=== PATIENT | male | born 1945 | race American Indian/Alaskan Native ===

== ENCOUNTER 2016-12-29 18:46 | Emergency (ER) | payer MEDICARE, OTHER ==
[2016-12-29 19:11] VITALS: BP 135/60
--- NOTE | 2016-12-29 19:18 | EDM.PDOC ---
ED HPI GENERAL MEDICAL PROBLEM - General Chief Complaint: Syncope Stated Complaint: WEAK,PASSED OUT EARLIER TODAY, [id number] Time Seen by Provider: 12/29/16 19:12 Source of Information: Reports: Patient History Limitations: Reports: No Limitations - History of Present Illness INITIAL COMMENTS - FREE TEXT/NARRATIVE: c/o dizziness weakness all day, no CP/SOB. denies prior h/o heart problems takes no rx. Dr Pennington @ cardiology consulted who states since VS are stable Pt in no acute distress then may wait and have Pt transf to @ [facility]. have pacer pads on and ready just in case. 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: Reports: EKG, IV/IO - Related Data Allergies Allergy/AdvReac Type Severity Reaction Status Date / Time metformin Allergy Anxiety Verified 01/03/16 06:30 Home Meds: Home Meds Aspirin [Children's Aspirin] 81 mg PO DAILY 09/12/14 [History] Cod Liver Oil 1 cap PO DAILY 01/03/16 [History] Past Medical History HEENT History: Reports: Hard of Hearing Cardiovascular History: Reports: [place] Respiratory History: Reports: None Gastrointestinal History: Reports: None Genitourinary History: Reports: None Other Genitourinary History: kidney infection Musculoskeletal History: Reports: None Other Musculoskeletal History: shoulder pain Neurological History: Reports: None Psychiatric History: Reports: None Endocrine/Metabolic History: Reports: Diabetes, Type II Hematologic History: Reports: Anemia, Blood Transfusion(s) Immunologic History: Reports: None Oncologic (Cancer) History: Reports: None Dermatologic History: Reports: None - Infectious Disease History Infectious Disease History: Reports: None - Past Surgical History Head Surgeries/Procedures: Reports: None Social & Family History - Family History Family Medical History: Noncontributory - Tobacco Use Smoking Status *Q: Never Smoker Second Hand Smoke Exposure: No - Caffeine Use Caffeine Use: Reports: Coffee - Alcohol Use Days Per Week of Alcohol Use: 0 - Recreational Drug Use Recreational Drug Use: No - Living Situation & Occupation Living situation: Reports: Occupation: Retired ED ROS GENERAL - Review of Systems Review Of Systems: ROS reveals no pertinent complaints other than HPI. ED EXAM, DIZZINESS - Physical Exam Exam: See Below Exam Limited By: No Limitations General Appearance: Alert, WD/WN, No Apparent Distress Eye Exam: Bilateral Eye: PERRL (pupils ess ER @ 4mm) Ears: Hearing Grossly Normal Throat/Mouth: Normal Voice, No Airway Compromise Head Exam: Atraumatic Neck: Non-Tender, Full Range of Motion Respiratory/Chest: No Respiratory Distress Cardiovascular: Bradycardia GI/Abdominal: Soft, Non-Tender Neurological: Alert, No Motor/Sensory Deficits, Oriented x 3, Other ([place]anf to [place] by self.) Psychiatric: Flat Affect Skin Exam: Warm, Dry Course - Vital Signs Last Recorded V/S: Last Vital Signs Temp 36.5 C 12/29/16 19:11 Pulse 35 L 12/29/16 19:11 Resp 8 L 12/29/16 19:11 BP 135/60 12/29/16 19:11 Pulse Ox 98 12/29/16 19:11 - Orders/Labs/Meds Orders: Active Orders 24 hr Category Date Time Status EKG 12 Lead [EKG Documentation Completion] [RC] STAT Care 12/29/16 19:06 Active Labs: Laboratory Tests 12/29/16 12/29/16 12/29/16 Range/Units 18:56 18:56 18:56 WBC 7.3 (5.0-10.0) 10^3/uL RBC 4.80 (4.6-6.2) 10^6/uL Hgb 13.9 L (14.0-18.0) g/dL Hct 43.1 (40.0-54.0) % MCV 89.8 (80-100) fL MCH 29.0 (27.0-34.0) pg MCHC 32.3 L (33.0-35.0) g/dL Plt Count 179 (150-450) 10^3/uL Neut % (Auto) 65.5 (42.2-75.2) % Lymph % (Auto) 23.8 (20.5-50.1) % [place] % (Auto) 9.3 H (2-8) % Eos % (Auto) 1.1 (1.0-3.0) % Baso % (Auto) 0.3 (0.0-1.0) % D-Dimer, Quantitative < 100 (0-400) ng/mL Sodium 140 (135-145) mmol/L Potassium 4.1 (3.6-5.0) mmol/L Chloride 107 (101-111) mmol/L Carbon Dioxide 22.0 (21.0-31.0) mmol/L Anion Gap 15.1 BUN 12 (7-18) mg/dL Creatinine 1.2 (0.6-1.3) mg/dL Est Cr Clr Drug Dosing TNP Estimated GFR (MDRD) > 60 BUN/Creatinine Ratio 10.00 Glucose 120 H (74-105) mg/dL Calcium 9.4 (8.4-10.2) mg/dl Total Bilirubin 0.5 (0.2-1.0) mg/dL AST 27 (10-42) IU/L ALT 27 (10-60) IU/L Alkaline Phosphatase 58 (42-121) IU/L Troponin I 0.07 H* (0.00-0.02) ng/ml B-Natriuretic Peptide 198 H (0-100) pg/ml Total Protein 7.4 (6.7-8.2) g/dl Albumin 4.0 (3.2-5.5) g/dl Globulin 3.4 Albumin/Globulin Ratio 1.18 - Re-Assessments/Exams Free Text/Narrative Re-Assessment/Exam: 12/29/16 19:[address] Kerr @ who kindly accepted pt. Departure - Departure Time of Disposition: 19:41 Disposition: DC/Tfer to Acute Hospital 02 Condition: Good Clinical Impression: Second degree heart block by electrocardiogram (ECG) - Discharge Information Forms: Interfacility Transfer EMTALA - My Orders Last 24 Hours: My Active Orders 12/29/16 19:06 EKG 12 Lead [EKG Documentation Completion] [RC] STAT - Assessment/Plan Last 24 Hours: My Active Orders 12/29/16 19:06 EKG 12 Lead [EKG Documentation Completion] [RC] STAT
[2016-12-29 19:28] LABS: CHLORIDE,CL 107 mmol/L (101-111); SODIUM,NA 140 mmol/L (135-145)
--- NOTE | 2017-01-02 11:09 | EKG ---
12/29/2016 - MIGUEL DYKES - TIME: 1856 hours. EKG shows Mobitz type 2 AV block. There is abnormal R-wave progression. [facility] /[id number]
== END 2016-12-29 19:43 ==
LOC: DL.ED 18:46
DX: I44.1 Atrioventricular block, second degree (principal); I25.2 Old myocardial infarction; E11.9 Type 2 diabetes mellitus without complications; Z86.2 Personal history of diseases of the blood and blood-forming organs and certain disorders involving the immune mechanism; Z88.8 Allergy status to other drugs, medicaments and biological substances; Z79.82 Long term (current) use of aspirin; Z79.899 Other long term (current) drug therapy
CPT/HCPCS: 36415; 80053; 83880; 84484; 85025; 85379; 93005; 93010; 99285

== ENCOUNTER 2018-01-20 15:15 | Emergency (ER) | payer MEDICARE, OTHER ==
[2018-01-20] MEDS ORDERED: Sodium Chloride 0.9% 10 ML Syringe FLUSH PRN (15:29)
[2018-01-20] MEDS ORDERED: Nitroglycerin 0.4 MG Tab.SL SL ONE (16:02)
[2018-01-20] MEDS ORDERED: Morphine 10 MG/ML Syringe IVPUSH ONE (16:07)
[2018-01-20] MEDS ORDERED: Ondansetron 4 MG/2 ML SDV IV ONE (16:07)
[2018-01-20 16:09] LABS: ANION GAP 11.2; CHLORIDE,CL 107 mmol/L (101-111); SODIUM,NA 141 mmol/L (135-145)
[2018-01-20 16:20] VITALS: BP 139/70
--- NOTE | 2018-01-20 18:05 | EDM.PDOC ---
Scribed by Delia Robles 01/20/18 [id number] for Guido Rojo MD ED HPI GENERAL MEDICAL PROBLEM - General Chief Complaint: Chest Pain Stated Complaint: CHEST PAIN [id number] Time Seen by Provider: 01/20/18 15:28 Source of Information: Reports: Patient, RN, RN Notes Reviewed History Limitations: Reports: No Limitations - History of Present Illness INITIAL COMMENTS - FREE TEXT/NARRATIVE: Patient reports to ER with complaint of onset of chest pain at about 8:30 this morning as he was leaving worship. Patient states that he has had a generalized headache and generalized weakness. Symptoms have been persistent throughout the entire day. Patient states that he began to feel that it could be related to his heart. He then thought that his left arm could be weaker than the right so he decided to come to the ER. He denies any visual change, slurred speech or difficulty swallowing. Denies any difficulty walking, numbness or tingling. Onset: Today Duration: Getting Worse Location: Reports: Chest Quality: Reports: Ache Severity: Moderate Improves with: Reports: None Worsens with: Reports: None Associated Symptoms: Reports: No Other Symptoms Mid-Sternal Pain Score (Numeric/FACES): 9 - Related Data Allergies Allergy/AdvReac Type Severity Reaction Status Date / Time metformin Allergy Anxiety Verified 01/20/18 15:33 Home Meds: Home Meds Aspirin [Children's Aspirin] 81 mg PO DAILY 09/12/14 [History] Cod Liver Oil 1 cap PO DAILY 01/03/16 [History] Past Medical History HEENT History: Reports: Hard of Hearing Cardiovascular History: Reports: [place] Respiratory History: Reports: None Gastrointestinal History: Reports: None Genitourinary History: Reports: None Other Genitourinary History: kidney infection Musculoskeletal History: Reports: None Other Musculoskeletal History: shoulder pain Neurological History: Reports: None Psychiatric History: Reports: None Endocrine/Metabolic History: Reports: Diabetes, Type II Hematologic History: Reports: Anemia, Blood Transfusion(s) Immunologic History: Reports: None Oncologic (Cancer) History: Reports: None Dermatologic History: Reports: None - Infectious Disease History Infectious Disease History: Reports: None - Past Surgical History Head Surgeries/Procedures: Reports: None Social & Family History - Family History Family Medical History: Noncontributory - Caffeine Use Caffeine Use: Reports: Coffee - Living Situation & Occupation Living situation: Reports: Occupation: Retired ED ROS GENERAL - Review of Systems Review Of Systems: ROS reveals no pertinent complaints other than HPI. ED EXAM, GENERAL - Physical Exam Exam: See Below Exam Limited By: No Limitations General Appearance: Alert, WD/WN, No Apparent Distress, Anxious Eye Exam: Bilateral Eye: EOMI, Normal Inspection, PERRL Ears: Normal External Exam, Hearing Grossly Normal Nose: Normal Inspection Throat/Mouth: Normal Inspection, Normal Lips, Normal Teeth, Normal Gums, Normal Oropharynx, Normal Voice, No Airway Compromise Head: Atraumatic, Normocephalic Neck: Normal Inspection, Supple, Non-Tender, Full Range of Motion. No: Carotid Bruit Respiratory/Chest: No Respiratory Distress, Lungs Clear, Normal Breath Sounds, No Accessory Muscle Use, Chest Non-Tender Cardiovascular: Normal Peripheral Pulses, Regular Rate, Rhythm, No Edema, No Gallop, No JVD, No Murmur, No Rub GI/Abdominal: Normal Bowel Sounds, Soft, Non-Tender, No Distention (Male) Exam: Deferred Rectal (Males) Exam: Deferred Back Exam: Normal Inspection Extremities: Normal Inspection, Normal Range of Motion, Non-Tender, Normal Capillary Refill, No Pedal Edema Neurological: Alert, Oriented, CN II-XII Intact, Normal Cognition, Normal Gait, No Motor/Sensory Deficits, Other (at the time of my exam has normal bilateral manager hospitality strength to the upper extremities. ) Psychiatric: Anxious Skin Exam: Warm, Dry, Intact, Normal Color, No Rash EKG INTERPRETATION EKG Date: 01/20/18 Time: 15:23 Rhythm: Other (atrial paced complexes) Rate (Beats/Min): 60 [place]ava[place]: Normal P-Wave: Present QRS: Other (RBBB, probable left atrial abnormality and probable lateral infarct. ) ST-T: Normal QT: Normal Course - Vital Signs Last Recorded V/S: Last Vital Signs Temp 37.1 C 01/20/18 15:27 Pulse 60 01/20/18 15:27 Resp 14 01/20/18 15:27 BP 139/70 01/20/18 16:11 Pulse Ox 98 01/20/18 15:27 - Orders/Labs/Meds Orders: Active Orders 24 hr Category Date Time Status EKG 12 Lead [EKG Documentation Completion] [RC] STAT Care 01/20/18 15:30 Active NIH Stroke Scale [RC] ASDIRECTED Care 01/20/18 15:42 Active Peripheral IV Care [RC] . DIRECTED Care 01/20/18 15:30 Active Sodium Chloride 0.9% [Saline Flush] Med 01/20/18 15:29 Active 10 ml FLUSH ASDIRECTED PRN Peripheral IV Insertion Adult [OM.PC] Stat Oth 01/20/18 15:30 Ordered Medication Orders Sodium Chloride (Saline Flush) 10 ml FLUSH ASDIRECTED PRN PRN Reason: Keep Vein Open Last Admin: 01/20/18 15:29 Dose: 10 ml Labs: Laboratory Tests 01/20/18 01/20/18 01/20/18 Range/Units 15:30 15:30 15:30 WBC 5.6 (5.0-10.0) 10^3/uL RBC 4.81 (4.6-6.2) 10^6/uL Hgb 13.9 L (14.0-18.0) g/dL Hct 43.3 (40.0-54.0) % MCV 90.0 (80-100) fL MCH 28.9 (27.0-34.0) pg MCHC 32.1 L (33.0-35.0) g/dL Plt Count 168 (150-450) 10^3/uL Neut % (Auto) 54.8 (42.2-75.2) % Lymph % (Auto) 32.3 (20.5-50.1) % [place] % (Auto) 10.9 H (2-8) % Eos % (Auto) 1.6 (1.0-3.0) % Baso % (Auto) 0.4 (0.0-1.0) % PT 10.0 (9.0-12.0) SEC INR 1.0 (0.9-1.2) APTT 27.6 (22.0-34.0) SEC Sodium 141 (135-145) mmol/L Potassium 4.2 (3.6-5.0) mmol/L Chloride 107 (101-111) mmol/L Carbon Dioxide 27.0 (21.0-31.0) mmol/L Anion Gap 11.2 BUN 6 L (7-18) mg/dL Creatinine 0.9 (0.6-1.3) mg/dL Est Cr Clr Drug Dosing 81.34 mL/min Estimated GFR (MDRD) > 60 BUN/Creatinine Ratio 6.66 Glucose 104 (74-105) mg/dL Calcium 9.1 (8.4-10.2) mg/dl Total Bilirubin 1.0 (0.2-1.0) mg/dL AST 18 (10-42) IU/L ALT 16 (10-60) IU/L Alkaline Phosphatase 73 (42-121) IU/L Troponin I 0.02 (0.00-0.02) ng/ml Total Protein 7.6 (6.7-8.2) g/dl Albumin 4.1 (3.2-5.5) g/dl Globulin 3.5 Albumin/Globulin Ratio 1.17 Lipase 24 (22-51) U/L Meds: Medications Generic Name Dose Route Start Last Admin Trade Name Freq PRN Reason Stop Dose Admin Sodium Chloride 10 ml 01/20/18 15:29 01/20/18 15:29 Saline Flush FLUSH 10 ml ASDIRECTED PRN Administration Keep Vein Open Discontinued Medications Generic Name Dose Route Start Last Admin Trade Name Freq PRN Reason Stop Dose Admin Morphine Sulfate 5 mg 01/20/18 16:07 01/20/18 16:18 Morphine IVPUSH 01/20/18 16:08 5 mg ONETIME ONE Administration Nitroglycerin 0.4 mg 01/20/18 16:02 01/20/18 16:11 Nitrostat SL 01/20/18 16:03 0.4 mg ONETIME ONE Administration Ondansetron HCl 4 mg 01/20/18 16:07 01/20/18 16:18 Zofran IV 01/20/18 16:08 4 mg ONETIME ONE Administration - Radiology Interpretation Free Text/Narrative:: Head CT: No acute intracranial abnormality. Luz Stroke Program Early CT Score (ASPECTS)=10. See rad report. Chest x-ray: No acute findings. See rad report. - Re-Assessments/Exams Free Text/Narrative Re-Assessment/Exam: 01/20/18 18:05 See RN entry for NIH stroke scale. Departure - Departure Time of Disposition: 18:00 Disposition: Home, Self-Care 01 Condition: Good Clinical Impression: Atypical chest pain Head ache Qualifiers: Headache type: unspecified Headache chronicity pattern: acute headache Intractability: not intractable Qualified Code(s): R51 - Headache Instructions: Nonspecific Chest Pain, [id number] Forms: ED Department Discharge Additional Instructions: Rest. Drink plenty of water Following in clinic if not completely improved in the next 1 to 2 days. Return to ER if worse at any time. - My Orders Last 24 Hours: My Active Orders 01/20/18 15:29 Sodium Chloride 0.9% [Saline Flush] 10 ml FLUSH ASDIRECTED PRN 01/20/18 15:30 EKG 12 Lead [EKG Documentation Completion] [RC] STAT Peripheral IV Care [RC] . DIRECTED Peripheral IV Insertion Adult [OM.PC] Stat 01/20/18 15:42 NIH Stroke Scale [RC] ASDIRECTED - Assessment/Plan Last 24 Hours: My Active Orders 01/20/18 15:29 Sodium Chloride 0.9% [Saline Flush] 10 ml FLUSH ASDIRECTED PRN 01/20/18 15:30 EKG 12 Lead [EKG Documentation Completion] [RC] STAT Peripheral IV Care [RC] . DIRECTED Peripheral IV Insertion Adult [OM.PC] Stat 01/20/18 15:42 NIH Stroke Scale [RC] ASDIRECTED I have read and agree with the documentation that has been completed regarding this visit. By signing this record, I attest that the documentation was completed in my physical presence and is an accurate record of the encounter.
--- NOTE | 2018-01-23 09:26 | EKG ---
01/20/2018- MIGUEL DYKES - FINDINGS: A 12-lead EKG shows atrial-paced complexes. No significant ST elevation or ST depression noted on this 12-lead EKG. [facility] /[id number]
== END 2018-01-20 18:16 | disposition home or self-care (01) ==
LOC: DL.ED 15:15
DX: R07.2 Precordial pain (principal); R51 Headache; I25.2 Old myocardial infarction; E11.9 Type 2 diabetes mellitus without complications; Z79.84 Long term (current) use of oral hypoglycemic drugs; Z79.82 Long term (current) use of aspirin
CPT/HCPCS: 36415; 70450; 71045; 80053; 83690; 84484; 85025; 85610; 85730; 93005; 93010; 96374; 96375; 99284; 99285; A9270; J2270; J2405; J7050

== ENCOUNTER 2018-07-06 13:41 | Emergency (ER) | payer MEDICAID, MEDICARE ==
[2018-07-06 13:48] VITALS: BP 140/78
[2018-07-06] MEDS ORDERED: cefTRIAXone 1 GM, Lidocaine 1% 2.1 ML IM ONE ×2 (14:07)
--- NOTE | 2018-07-06 14:11 | EDM.PDOC ---
ED HPI GENERAL MEDICAL PROBLEM - General Chief Complaint: Respiratory Problem Stated Complaint: BREATHING PROBLEMS Time Seen by Provider: 07/06/18 13:56 Source of Information: Reports: Patient, RN, RN Notes Reviewed History Limitations: Reports: No Limitations - History of Present Illness INITIAL COMMENTS - FREE TEXT/NARRATIVE: Patient presents to ER with complaint of cough, runny nose, congestion, headache , fever, chills, sore throat, diarrhea and nausea. He was seen at [facility] 3 weeks ago and antibiotics were given. He settled down for a while then got worse. Onset: Gradual Duration: Getting Worse Location: Reports: Chest Quality: Reports: Ache Severity: Moderate Improves with: Reports: None Worsens with: Reports: None Associated Symptoms: Reports: No Other Symptoms Chest Pain Score (Numeric/FACES): 10 - Related Data Allergies Allergy/AdvReac Type Severity Reaction Status Date / Time metformin Allergy Anxiety Verified 07/06/18 13:51 Home Meds: Home Meds Aspirin [Children's Aspirin] 81 mg PO DAILY 09/12/14 [History] Cod Liver Oil 1 cap PO DAILY 01/03/16 [History] Past Medical History HEENT History: Reports: Hard of Hearing, Impaired Vision Cardiovascular History: Reports: [place], [place], Pacemaker Other Cardiovascular History: Bypass 2017 Respiratory History: Reports: None Gastrointestinal History: Reports: None Genitourinary History: Reports: None Other Genitourinary History: kidney infection Musculoskeletal History: Reports: None Other Musculoskeletal History: shoulder pain Neurological History: Reports: None Psychiatric History: Reports: None Endocrine/Metabolic History: Reports: Diabetes, Type II Hematologic History: Reports: Anemia, Blood Transfusion(s) Immunologic History: Reports: None Oncologic (Cancer) History: Reports: None Dermatologic History: Reports: None - Infectious Disease History Infectious Disease History: Reports: None - Past Surgical History Head Surgeries/Procedures: Reports: None GI Surgical History: Reports: Appendectomy Social & Family History - Family History Family Medical History: Noncontributory - Tobacco Use Smoking Status *Q: Never Smoker - Caffeine Use Caffeine Use: Reports: Coffee - Recreational Drug Use Recreational Drug Use: No - Living Situation & Occupation Living situation: Reports: Occupation: Retired ED ROS GENERAL - Review of Systems Review Of Systems: ROS reveals no pertinent complaints other than HPI. ED EXAM, GENERAL - Physical Exam Exam: See Below Exam Limited By: No Limitations General Appearance: Alert, WD/WN, No Apparent Distress Eye Exam: Bilateral Eye: EOMI, Normal Inspection, PERRL Ears: Normal External Exam, Normal Canal, Hearing Grossly Normal, Normal TMs Ear Exam: Bilateral Ear: Auricle Normal, Canal Normal, TM normal Nose: Normal Inspection, Normal Mucosa, No Blood Throat/Mouth: Other (Pharynx erythematous) Head: Atraumatic, Normocephalic Neck: Normal Inspection, Supple, Non-Tender, Full Range of Motion Respiratory/Chest: Crackles (bases bilaterally) Cardiovascular: Normal Peripheral Pulses, Regular Rate, Rhythm, No Edema, No Gallop, No JVD, No Murmur, No Rub GI/Abdominal: Normal Bowel Sounds, Soft, Non-Tender, No Organomegaly, No Distention, No Abnormal Bruit, No Mass (Male) Exam: Deferred Rectal (Males) Exam: Deferred Back Exam: Normal Inspection, Full Range of Motion, NT Extremities: Normal Inspection, Normal Range of Motion, Non-Tender, Normal Capillary Refill, No Pedal Edema Neurological: Alert, Oriented, CN II-XII Intact, Normal Cognition, Normal Gait, Normal Reflexes, No Motor/Sensory Deficits Psychiatric: Normal Affect, Normal Mood Skin Exam: Warm, Dry, Intact, Normal Color, No Rash Lymphatic: Other (submental right +2.) Course - Vital Signs Last Recorded V/S: Last Vital Signs Temp 97.5 F 07/06/18 13:45 Pulse 66 07/06/18 13:45 Resp 16 07/06/18 13:45 BP 140/78 07/06/18 13:45 Pulse Ox 95 07/06/18 13:45 - Orders/Labs/Meds Meds: Medications Discontinued Medications Generic Name Dose Route Start Last Admin Trade Name Freq PRN Reason Stop Dose Admin Ceftriaxone Sodium 1 gm/ 0 gm 07/06/18 14:07 Lidocaine HCl 2.1 ml IM 07/06/18 14:08 ONETIME ONE Departure - Departure Time of Disposition: 14:09 Disposition: Home, Self-Care 01 Condition: Fair Clinical Impression: Bronchitis Sinusitis Qualifiers: Sinusitis location: unspecified location Chronicity: acute Recurrence: recurrent Qualified Code(s): J01.91 - Acute recurrent sinusitis, unspecified - Discharge Information *PRESCRIPTION DRUG MONITORING PROGRAM REVIEWED*: No *COPY OF PRESCRIPTION DRUG MONITORING REPORT IN PATIENT KAMALA: No Instructions: Sinusitis, Adult, [id number], Acute Bronchitis, Adult, Easy-to- Read, Upper Respiratory Infection, Adult, [id number] Forms: ED Department Discharge Additional Instructions: RX: Augmentin Drink plenty of water May use an over the counter decongestant, Coricidan HBP for high blood pressure Follow up with your primary care facility
== END 2018-07-06 14:38 | disposition home or self-care (01) ==
LOC: DL.ED 13:41
DX: J40 Bronchitis, not specified as acute or chronic (principal); J01.91 Acute recurrent sinusitis, unspecified; E11.9 Type 2 diabetes mellitus without complications; Z88.8 Allergy status to other drugs, medicaments and biological substances; Z79.82 Long term (current) use of aspirin; Z95.1 Presence of aortocoronary bypass graft
CPT/HCPCS: 99283; J0696

== ENCOUNTER → 2018-07-31 | Day surgery (SDC) | payer MEDICARE, OTHER ==
[~2018-07-31] MED LIST: Acetaminophen 325 MG Tab PO PRN; Dexamethasone 4 MG/ML SDV IV ONE; Midazolam 1 MG/ML 2 ML SDV IV ONE; Ondansetron 4 MG/2 ML SDV IVPUSH PRN; Phenylephrine 10% Ophth Soln 5 ML Bot EYELF PRN; Sodium Chloride 0.9% 10 ML Syringe IV ONE
[2018-07-31] MEDS: Sodium Chloride 0.9% 10 ML Syringe FLUSH PRN (08:40)
[2018-07-31] MEDS: Proparacaine 0.5% Ophth Soln 15 ML Bottle EYELF ONE (08:43)
[2018-07-31] MEDS: Povidone-Iodine 5% Sterile Ophth Soln 30 ML Bottle EYELF ONE ×2 (08:43→09:32)
[2018-07-31] MEDS: Moxifloxacin 0.5% Ophth Soln 3 ML Bottle EYELF ONE (08:44)
[2018-07-31] MEDS: Phenylephrine 10% Ophth Soln 5 ML Bot EYELF ONE (08:45)
[2018-07-31] MEDS: Timolol Maleate 0.5% Ophth Soln 5 ML Bottle EYELF ONE (08:46)
[2018-07-31] MEDS: Cataract Ophth Solution EYELF ONE (08:48)
[2018-07-31] MEDS: Lidocaine 1% 30 ML SDV ONE (09:31)
[2018-07-31] MEDS: Tetracaine HCl/PF 0.5% 4 ML Bottle EYELF ONE (09:31)
[2018-07-31] MEDS: Diclofenac Sodium 0.1% Ophth Soln 5 ML Bottle EYELF ONE (09:32)
[2018-07-31] MEDS: Dexamethasone/Neomycin/Polymyxin B Ophth Oint 3.5 GM Tube EYELF ONE (09:32)
[2018-07-31] MEDS: Apraclonidine 0.5% Ophth Soln 5 ML Bot EYELF ONE (09:32)
[2018-07-31] MEDS: Vancomycin 500 MG SDV EYELF ONE (09:32)
[2018-07-31] MEDS: Balanced Salt Solution Ophth Irrig 500 ML Bottle IOCULAR ONE (09:33)
[2018-07-31] MEDS: Carbachol 0.01% Intraocular 1.5 ML Vial EYELF ONE (09:33)
[2018-07-31] MEDS: Chondroitin Sulfate/Hyaluronate Sodium Ophth Inj 0.75 ML Syringe EYELF ONE (09:33)
[2018-07-31] MEDS: Chondroitin Sulfate/Hyaluronate Sodium Ophth Inj 0.5 ML Syringe IOCULAR ONE (09:33)
--- NOTE | 2018-07-31 10:01 | OR ---
DATE: PREOPERATIVE DIAGNOSES: 1. Visually significant mixed cataract, left eye. 2. Primary open angle glaucoma, left eye. POSTOPERATIVE DIAGNOSES: 1. Visually significant mixed cataract, left eye. 2. Primary open angle glaucoma, left eye. PROCEDURES: 1. Extracapsular cataract extraction with intraocular lens implant. 2. Placement of iStent for glaucoma control. SURGEON: Heladio Wayne MD. ANESTHESIA: Local MAC. INDICATION: Mr. Sandoval was seen in the clinic with complaints of difficulty reading, difficulty seeing fine print, difficulty driving at night. His examination reveals visually significant cataract and mild primary open-angle glaucoma. I explained options; offered cataract surgery; and explained risks including but not limited to infection, retinal detachment, and loss of vision amongst others. We discussed implant options. He has requested a monofocal implant. I recommended the iStent. OPERATIVE DESCRIPTION: The patient was prepped and draped in a sterile fashion and topical anesthesia was applied. Attention was placed on the operative eye. A sterile lid speculum was placed to allow operative exposure. Paracentesis was made temporal. Intracameral lidocaine was administered. Viscoelastic was injected. A full-thickness corneal incision was made using the trapezoidal blade. Bent needle cystotome was then used to make a small elvis in the anterior capsule, and a 360-degree curvilinear capsulorrhexis was created. Nucleus was then hydrodissected and hydrodelinated using balanced saline solution. Nucleus was then decompressed centrally and rotated and noted to be free of adhesions. Nucleus was then removed using the phacoemulsification handpiece. Additional viscoelastic was then injected into the capsular bag, and the intraocular lens was inserted into the capsular bag. The iStent portion of the procedure was then performed. Following removal of the nucleus and cortex, the irrigation and aspiration handpiece was inserted to remove viscoelastic from the posterior surface of the IOL. Additional viscoelastic was then inserted into the anterior chamber angle directly opposite the corneal incision. Miochol was injected into the nasal iris to promote pupillary contraction. The patient's head was then rotated 35 degrees away from the initial position. The operating microscope was also rotated 35 degrees to achieve the proper orientation. The gonioprism was then placed onto the eye. The iStent was then inserted into the anterior chamber with the right hand, and the stent was introduced into the pigmented trabecular meshwork. The stent was advanced beneath the trabecular meshwork until approximately two-thirds of the body was covered, and then the stent was released from the insertion device. The stent was then tapped into its final resting position using the insertion device. The device was then reinspected to ensure that it was securely in position. The viscoelastic was aspirated from the anterior chamber. Wound and paracentesis sites were hydrated using balanced saline solution. Vancomycin 0.1 mL was injected into the anterior chamber. Intraocular lens was inspected and noted to be clear and well centered. Postoperative drops were placed, and a sterile eye patch and shield were placed over the operative eye. The patient was then transported to the postoperative recovery area having tolerated the procedure well. No complications occurred. [facility] /[id number]
[2018-07-31 13:36] VITALS: BP 139/74
== END | disposition home or self-care (01) ==
LOC: DL.SDS 08:24
PROVIDERS: ATTEND Ophthalmology
DX: E11.36 Type 2 diabetes mellitus with diabetic cataract (principal); H25.812 Combined forms of age-related cataract, left eye; E11.39 Type 2 diabetes mellitus with other diabetic ophthalmic complication; H40.1121 Primary open-angle glaucoma, left eye, mild stage; H42 Glaucoma in diseases classified elsewhere; I13.0 Hypertensive heart and chronic kidney disease with heart failure and stage 1 through stage 4 chronic kidney disease, or unspecified chronic kidney disease; N18.9 Chronic kidney disease, unspecified; I50.9 Heart failure, unspecified; E66.01 Morbid (severe) obesity due to excess calories; Z68.38 Body mass index [BMI] 38.0-38.9, adult; E78.5 Hyperlipidemia, unspecified; Z87.891 Personal history of nicotine dependence; Z79.82 Long term (current) use of aspirin; Z79.02 Long term (current) use of antithrombotics/antiplatelets; Z95.1 Presence of aortocoronary bypass graft; Z88.8 Allergy status to other drugs, medicaments and biological substances
CPT/HCPCS: 00142; A9270-GY; C1783; J1100; J2001; J2250; J3370; V2632

== ENCOUNTER 2018-08-25 21:08 | Emergency (ER) | payer MEDICARE, OTHER ==
[2018-08-25 21:16] VITALS: BP 160/68
--- NOTE | 2018-08-25 21:23 | EDM.PDOC ---
ED HPI GENERAL MEDICAL PROBLEM - General Chief Complaint: ENT Problem Stated Complaint: SORE THROAT,PAIN IN BACK NOSE WILLIAM CAI [id number] Time Seen by Provider: 08/25/18 21:20 Source of Information: Reports: Patient History Limitations: Reports: No Limitations - History of Present Illness INITIAL COMMENTS - FREE TEXT/NARRATIVE: c/o sore throat hard to swallow. Throat Pain Score (Numeric/FACES): 10 - Related Data Allergies Allergy/AdvReac Type Severity Reaction Status Date / Time metformin Allergy Anxiety Verified 08/25/18 21:24 Home Meds: Home Meds Aspirin [Children's Aspirin] 81 mg PO DAILY 09/12/14 [History] Cod Liver Oil 1 cap PO DAILY 01/03/16 [History] Clopidogrel Bisulfate [Clopidogrel] 75 mg PO DAILY 07/30/18 [History] Multivitamin with Minerals [Multivitamins with Minerals] 1 tab PO DAILY [History] Past Medical History HEENT History: Reports: Cataract, Hard of Hearing, Impaired Vision Cardiovascular History: Reports: Bypass, CAD, Heart Failure, High Cholesterol, Hypertension, [place], Pacemaker Other Cardiovascular History: Bypass 2017 Respiratory History: Reports: None Gastrointestinal History: Reports: None Genitourinary History: Reports: None Other Genitourinary History: kidney infection Musculoskeletal History: Reports: None Other Musculoskeletal History: shoulder pain Neurological History: Reports: None Psychiatric History: Reports: None Endocrine/Metabolic History: Reports: Diabetes, Type II Hematologic History: Reports: Anemia, Blood Transfusion(s) Immunologic History: Reports: None Oncologic (Cancer) History: Reports: None Dermatologic History: Reports: None - Infectious Disease History Infectious Disease History: Reports: None, Measles - Past Surgical History Head Surgeries/Procedures: Reports: None HEENT Surgical History: Reports: None Cardiovascular Surgical History: Reports: Coronary Artery Bypass GI Surgical History: Reports: Appendectomy Musculoskeletal Surgical History: Reports: None Social & Family History - Family History Family Medical History: Noncontributory - Caffeine Use Caffeine Use: Reports: Coffee Caffeine Use Comment: 30 oz daily - Living Situation & Occupation Living situation: Reports: Occupation: Retired ED ROS ENT - Review of Systems Review Of Systems: ROS reveals no pertinent complaints other than HPI. ED EXAM, ENT - Physical Exam Exam: See Below Exam Limited By: No Limitations General Appearance: Alert, WD/WN, Mild Distress, Other (discomfort) Ears: Hearing Grossly Normal Mouth/Throat: Normal Inspection, Pharyngeal Erythema, Tonsillar Erythema Head: Atraumatic Neck: Non-Tender, Full Range of Motion Respiratory/Chest: No Respiratory Distress Cardiovascular: Regular Rate, Rhythm GI/Abdominal: Soft, Non-Tender Neurological: Alert, Oriented, Normal Cognition, Normal Gait, No Motor/Sensory Deficits Psychiatric: Normal Affect, Normal Mood Skin: Warm, Dry, Normal Color Lymphatic: No Adenopathy Course - Vital Signs Last Recorded V/S: Last Vital Signs Temp 37.3 C 08/25/18 21:13 Pulse 69 08/25/18 21:13 Resp 18 08/25/18 21:13 BP 160/68 H 08/25/18 21:13 Pulse Ox 99 08/25/18 21:13 - Orders/Labs/Meds Orders: Active Orders 24 hr Category Date Time Status CULTURE STREP A CONFIRMATION [RM] Stat Lab 08/25/18 21:15 Results STREP SCRN A RAPID W CULT CONF [] Stat Lab 08/25/18 21:15 Results Meds: Medications Discontinued Medications Generic Name Dose Route Start Last Admin Trade Name Ramandeep PRN Reason Stop Dose Admin Penicillin G Procaine/Benzathine 1.2 millunits 08/25/18 21:36 08/25/18 21:41 Bicillin C-R 600/600 IM 08/25/18 21:37 1.2 millunits ONETIME ONE Administration - Re-Assessments/Exams Free Text/Narrative Re-Assessment/Exam: 08/25/18 21:36 results discussed with pt. Departure - Departure Time of Disposition: 21:45 Disposition: Home, Self-Care 01 Condition: Good Clinical Impression: Tonsillopharyngitis - Discharge Information Instructions: Tonsillitis, [id number] Forms: ED Department Discharge Additional Instructions: 1) avoid solid foods and scratchy foods next 48 hours 2) take tylenol or motrin as needed for fever or pain 3) recheck as needed 4) try salt water gargle - My Orders Last 24 Hours: My Active Orders 08/25/18 21:15 CULTURE STREP A CONFIRMATION [RM] Stat STREP SCRN A RAPID W CULT CONF [RM] Stat - Assessment/Plan Last 24 Hours: My Active Orders 08/25/18 21:15 CULTURE STREP A CONFIRMATION [RM] Stat STREP SCRN A RAPID W CULT CONF [RM] Stat
[2018-08-25] MEDS ORDERED: Penicillin G Benzathine/Procaine 600-600 1.2 Millunits/2 ML Syringe IM ONE (21:36)
== END 2018-08-25 21:45 | disposition home or self-care (01) ==
LOC: DL.ED 21:08
DX: J03.90 Acute tonsillitis, unspecified (principal); Z88.8 Allergy status to other drugs, medicaments and biological substances; Z79.82 Long term (current) use of aspirin
CPT/HCPCS: 87081; 87430; 96372; 99283; J0558

== ENCOUNTER 2019-06-28 15:07 | Emergency (ER) | payer BC, MEDICARE, OTHER ==
[2019-06-28] MEDS ORDERED: Sodium Chloride 0.9% 10 ML Syringe FLUSH PRN (15:22)
[2019-06-28 15:39] VITALS: BP 141/74; PULSE 60
[2019-06-28 16:02] LABS: ANION GAP 11.2; CHLORIDE,CL 107 mmol/L (101-111); SODIUM,NA 139 mmol/L (135-145)
[2019-06-28] MEDS ORDERED: cefTRIAXone 1 GM in Sodium Chloride 0.9% 50 ML IV ONE (16:28)
[2019-06-28] MEDS ORDERED: Azithromycin 250 MG Tab PO ONE (16:28)
--- NOTE | 2019-06-28 17:28 | EDM.PDOC ---
Scribed by Delia Robles 06/28/19 1181 for Mariam Mendenhall NP ED HPI GENERAL MEDICAL PROBLEM - General Chief Complaint: Chest Pain Stated Complaint: CONGESTED/LIGHTHEADED Time Seen by Provider: 06/28/19 16:00 Source of Information: Reports: Patient, RN, RN Notes Reviewed History Limitations: Reports: No Limitations - History of Present Illness INITIAL COMMENTS - FREE TEXT/NARRATIVE: Patient presents to ER with complaint of chest discomfort and lightheadedness.. This began yesterday after shoveling. States not "pain" but discomfort. States CABG 2-1/2 years ago. He has had fever, chills, nausea and cough. No shortness of breath, vomiting or diarrhea. No radiation of pain. Onset: Sudden Onset Date: 06/27/19 Duration: Getting Worse Location: Reports: Chest Severity: Moderate Improves with: Reports: None Worsens with: Reports: None Associated Symptoms: Reports: No Other Symptoms - Related Data Allergies Allergy/AdvReac Type Severity Reaction Status Date / Time metformin Allergy Anxiety Verified 06/28/19 15:39 Home Meds: Home Meds Aspirin [Children's Aspirin] 81 mg PO DAILY 09/12/14 [History] Cod Liver Oil 1 cap PO DAILY 01/03/16 [History] Clopidogrel Bisulfate [Clopidogrel] 75 mg PO DAILY 07/30/18 [History] Multivitamin with Minerals [Multivitamins with Minerals] 1 tab PO DAILY [History] Past Medical History HEENT History: Reports: Cataract, Hard of Hearing, Impaired Vision Cardiovascular History: Reports: Bypass, CAD, Heart Failure, High Cholesterol, Hypertension, [place], Pacemaker Other Cardiovascular History: Bypass 2017 Respiratory History: Reports: None Gastrointestinal History: Reports: None Genitourinary History: Reports: None Other Genitourinary History: kidney infection Musculoskeletal History: Reports: Other (See Below) Other Musculoskeletal History: shoulder pain Neurological History: Reports: None Psychiatric History: Reports: None Endocrine/Metabolic History: Reports: Diabetes, Type II Hematologic History: Reports: Anemia, Blood Transfusion(s) Immunologic History: Reports: None Oncologic (Cancer) History: Reports: None Dermatologic History: Reports: None - Infectious Disease History Infectious Disease History: Reports: None, Measles - Past Surgical History Head Surgeries/Procedures: Reports: None HEENT Surgical History: Reports: None Cardiovascular Surgical History: Reports: Coronary Artery Bypass GI Surgical History: Reports: Appendectomy Musculoskeletal Surgical History: Reports: None Social & Family History - Family History Family Medical History: Noncontributory - Caffeine Use Caffeine Use: Reports: Coffee Caffeine Use Comment: 30 oz daily - Living Situation & Occupation Living situation: Reports: Occupation: Retired ED ROS GENERAL - Review of Systems Review Of Systems: Comprehensive ROS is negative, except as noted in HPI. ED EXAM, GENERAL - Physical Exam Exam: See Below Exam Limited By: No Limitations General Appearance: Alert, WD/WN, No Apparent Distress Eye Exam: Bilateral Eye: EOMI, Normal Inspection, PERRL Ears: Normal External Exam, Normal Canal, Hearing Grossly Normal, Normal TMs Nose: Normal Inspection, Normal Mucosa, No Blood Throat/Mouth: Normal Inspection, Normal Lips, Normal Teeth, Normal Gums, Normal Oropharynx, Normal Voice, No Airway Compromise Head: Atraumatic, Normocephalic Neck: Normal Inspection, Supple, Non-Tender, Full Range of Motion Respiratory/Chest: Other (diminished in bases) Cardiovascular: Normal Peripheral Pulses, Regular Rate, Rhythm, No Edema, No Gallop, No JVD, No Murmur, No Rub GI/Abdominal: Normal Bowel Sounds, Soft, Non-Tender, No Organomegaly, No Distention, No Abnormal Bruit, No Mass (Male) Exam: Deferred Rectal (Males) Exam: Deferred Back Exam: Normal Inspection, Full Range of Motion, NT Extremities: Normal Inspection, Normal Range of Motion, Non-Tender, Normal Capillary Refill, No Pedal Edema Neurological: Alert, Oriented, CN II-XII Intact, Normal Cognition, Normal Gait, Normal Reflexes, No Motor/Sensory Deficits Psychiatric: Normal Affect, Normal Mood Skin Exam: Warm, Dry, Intact, Normal Color, No Rash Lymphatic: No Adenopathy Course - Vital Signs Last Recorded V/S: Last Vital Signs Temp 98.4 F 06/28/19 15:10 Pulse 60 06/28/19 15:10 Resp 14 06/28/19 15:10 BP 141/74 H 06/28/19 15:10 Pulse Ox 97 06/28/19 15:10 - Orders/Labs/Meds Orders: Active Orders 24 hr Category Date Time Status EKG Documentation Completion [RC] STAT Care 06/28/19 15:22 Active Peripheral IV Care [RC] . DIRECTED Care 06/28/19 15:23 Active Sodium Chloride 0.9% [Saline Flush] Med 06/28/19 15:22 Active 10 ml FLUSH ASDIRECTED PRN cefTRIAXone [Rocephin] 1 gm Med 06/28/19 16:28 Active Sodium Chloride 0.9% [Normal Saline] 50 ml IV ONETIME Peripheral IV Insertion Adult [OM.PC] Stat Oth 06/28/19 15:22 Ordered Medication Orders Ceftriaxone Sodium 1 gm/ (Sodium Chloride) 50 mls @ 50 mls/hr IV ONETIME ONE Stop: 06/28/19 17:27 Last Admin: 06/28/19 16:41 Dose: 50 mls/hr Sodium Chloride (Saline Flush) 10 ml FLUSH ASDIRECTED PRN PRN Reason: Keep Vein Open Last Admin: 06/28/19 15:43 Dose: 10 ml Labs: Laboratory Tests 06/28/19 06/28/19 06/28/19 Range/Units 15:31 15:31 15:31 WBC 7.1 (5.0-10.0) 10^3/uL RBC 4.48 L (4.6-6.2) 10^6/uL Hgb 12.8 L (14.0-18.0) g/dL Hct 40.1 (40.0-54.0) % MCV 89.5 (80-100) fL MCH 28.6 (27.0-34.0) pg MCHC 31.9 L (33.0-35.0) g/dL Plt Count 162 (150-450) 10^3/uL Neut % (Auto) 58.0 (42.2-75.2) % Lymph % (Auto) 29.2 (20.5-50.1) % [place] % (Auto) 10.0 H (2-8) % Eos % (Auto) 2.5 (1.0-3.0) % Baso % (Auto) 0.3 (0.0-1.0) % PT 9.9 (9.0-12.0) SEC INR 1.0 (0.9-1.2) Sodium 139 (135-145) mmol/L Potassium 4.2 (3.6-5.0) mmol/L Chloride 107 (101-111) mmol/L Carbon Dioxide 25.0 (21.0-31.0) mmol/L Anion Gap 11.2 BUN 16 (7-18) mg/dL Creatinine 1.0 (0.6-1.3) mg/dL Est Cr Clr Drug Dosing 69.96 mL/min Estimated GFR (MDRD) > 60 BUN/Creatinine Ratio 16.00 Glucose 182 H (74-105) mg/dL Calcium 8.6 (8.4-10.2) mg/dl Total Bilirubin 0.8 (0.2-1.0) mg/dL AST 21 (10-42) IU/L ALT 25 (10-60) IU/L Alkaline Phosphatase 85 (42-121) IU/L Troponin I 0.03 H* (0.00-0.02) ng/ml B-Natriuretic Peptide 115 H (0-100) pg/ml Total Protein 7.4 (6.7-8.2) g/dl Albumin 3.8 (3.2-5.5) g/dl Globulin 3.6 Albumin/Globulin Ratio 1.06 Meds: Medications Generic Name Dose Route Start Last Admin Trade Name Freq PRN Reason Stop Dose Admin Ceftriaxone Sodium 1 gm/ 50 mls @ 50 mls/hr 06/28/19 16:28 06/28/19 16:41 Sodium Chloride IV 06/28/19 17:27 50 mls/hr ONETIME ONE Administration Sodium Chloride 10 ml 06/28/19 15:22 06/28/19 15:43 Saline Flush FLUSH 10 ml ASDIRECTED PRN Administration Keep Vein Open Discontinued Medications Generic Name Dose Route Start Last Admin Trade Name Freq PRN Reason Stop Dose Admin Azithromycin 500 mg 06/28/19 16:28 06/28/19 16:39 Zithromax PO 06/28/19 16:29 500 mg ONETIME ONE Administration - Radiology Interpretation Free Text/Narrative:: Chest xray: FINDINGS: Tubes, catheters and devices: A pacemaker device is present, and its leads are in appropriate position. Lungs: Lung aeration and architecture is normal. Pleural space: The pleural surfaces are normal. There are no signs of effusion or pneumothorax. Heart/Mediastinum: The heart and mediastinum appear normal.. Bones/joints: There are sternal wires consistent with previous sternotomy incision. IMPRESSION: 1. No change, no acute cardiopulmonary abnormalities. 2. Sequela of sternotomy and pacemaker placement. Thank you for allowing us to participate in the care of your patient. Dictated and Authenticated by: Elfego Velazquez MD 06/28/2019 3:45 PM Central Time ([place] & [place]) See rad report - Re-Assessments/Exams Free Text/Narrative Re-Assessment/Exam: 06/28/19 16:49 Discussed patient case with Dr. Johnson. Since the chest pain began last evening, the troponin is not as concerning. The chest x-ray shows consolidation to the left lower lobe. Patient will be treated with antibiotics and sent home. Dr. Johnson feels the patient can be discharged home. Encouraged the patient to return to the ER with any further problems or worsening symptoms. Departure - Departure Time of Disposition: 17:26 Disposition: Home, Self-Care 01 Reason for Transfer *Q: Other Condition: Fair Clinical Impression: Pneumonia Qualifiers: Pneumonia type: due to unspecified organism Laterality: left Lung location: lower lobe of lung Qualified Code(s): J18.9 - Pneumonia, unspecified organism Instructions: Community-Acquired Pneumonia, Adult, [id number] Forms: ED Department Discharge Additional Instructions: Rx: Azithromycin 250 mg daily 4 days Follow-up with your primary care provider if no improvement May use [id number] cough medication as directed May use Tylenol as directed for pain, fever Sepsis Event Note - Focused Exam Vital Signs: Vital Signs Temp Pulse Resp BP Pulse Ox 06/28/19 15:10 98.4 F 60 14 141/74 H 97 Date Exam was Performed: 06/28/19 Time Exam was Performed: 17:26 - My Orders Last 24 Hours: My Active Orders 06/28/19 15:22 EKG Documentation Completion [RC] STAT Sodium Chloride 0.9% [Saline Flush] 10 ml FLUSH ASDIRECTED PRN Peripheral IV Insertion Adult [OM.PC] Stat 06/28/19 15:23 Peripheral IV Care [RC] . DIRECTED 06/28/19 16:28 cefTRIAXone [Rocephin] 1 gm Sodium Chloride 0.9% [Normal Saline] 50 ml IV ONETIME - Assessment/Plan Last 24 Hours: My Active Orders 06/28/19 15:22 EKG Documentation Completion [RC] STAT Sodium Chloride 0.9% [Saline Flush] 10 ml FLUSH ASDIRECTED PRN Peripheral IV Insertion Adult [OM.PC] Stat 06/28/19 15:23 Peripheral IV Care [RC] . DIRECTED 06/28/19 16:28 cefTRIAXone [Rocephin] 1 gm Sodium Chloride 0.9% [Normal Saline] 50 ml IV ONETIME I have read and agree with the documentation that has been completed regarding this visit. By signing this record, I attest that the documentation was completed in my physical presence and is an accurate record of the encounter.
== END 2019-06-28 17:43 | disposition home or self-care (01) ==
LOC: DL.ED 15:07
DX: J18.9 Pneumonia, unspecified organism (principal); E11.9 Type 2 diabetes mellitus without complications; I11.0 Hypertensive heart disease with heart failure; I50.9 Heart failure, unspecified; I25.10 Atherosclerotic heart disease of native coronary artery without angina pectoris; I25.2 Old myocardial infarction; Z88.8 Allergy status to other drugs, medicaments and biological substances; Z79.82 Long term (current) use of aspirin; Z79.899 Other long term (current) drug therapy
CPT/HCPCS: 36415; 71045; 80053; 83880; 84484; 85025; 85610; 87804; 93005; 96365; 99285; A9270; J0696; J7050

== ENCOUNTER 2020-02-23 11:55 | Emergency (ER) | payer BC, MEDICARE, OTHER ==
[2020-02-23] MEDS ORDERED: Sodium Chloride 0.9% 10 ML Syringe FLUSH PRN (12:16)
--- NOTE | 2020-02-23 12:32 | EDM.PDOC ---
ED HPI GENERAL MEDICAL PROBLEM - General Chief Complaint: General Stated Complaint: AMBULANCE Time Seen by Provider: 02/23/20 12:00 Source of Information: Reports: Patient History Limitations: Reports: No Limitations - History of Present Illness INITIAL COMMENTS - FREE TEXT/NARRATIVE: Patient comes emergency department today from home by ambulance with concerns of being very thirsty and possibly dehydrated. This patient has been quarantined at home for the past 2 weeks due to a diagnosis of COVID-19 3 weeks ago. For the last day he just feels weak rundown and very thirsty. He really did not drink much water over the past 3 weeks he does not know why but over the last 24 hours he really feels very thirsty. He relates that he has been urinating every couple of hours. No fever no chills. No cough congestion shortness of breath or difficulty breathing. He has not had a fever for weeks. No chest pain difficulty breathing. No shortness of breath. No abdominal pain nausea or vomiting. No diarrhea. No constipation. No rash sores or lesions. - Related Data Allergies Allergy/AdvReac Type Severity Reaction Status Date / Time metformin Allergy Anxiety Verified 06/28/19 15:39 Home Meds: Home Meds Aspirin [Children's Aspirin] 81 mg PO DAILY 09/12/14 [History] Cod Liver Oil 1 cap PO DAILY 01/03/16 [History] Clopidogrel Bisulfate [Clopidogrel] 75 mg PO DAILY 07/30/18 [History] Multivitamin with Minerals [Multivitamins with Minerals] 1 tab PO DAILY 07/30/18 [History] Past Medical History HEENT History: Reports: Cataract, Hard of Hearing, Impaired Vision Cardiovascular History: Reports: Bypass, CAD, Heart Failure, High Cholesterol, Hypertension, [place], Pacemaker Other Cardiovascular History: Bypass 2017 Respiratory History: Reports: None Gastrointestinal History: Reports: None Genitourinary History: Reports: None Other Genitourinary History: kidney infection Musculoskeletal History: Reports: Other (See Below) Other Musculoskeletal History: shoulder pain Neurological History: Reports: None Psychiatric History: Reports: None Endocrine/Metabolic History: Reports: Diabetes, Type II Hematologic History: Reports: Anemia, Blood Transfusion(s) Immunologic History: Reports: None Oncologic (Cancer) History: Reports: None Dermatologic History: Reports: None - Infectious Disease History Infectious Disease History: Reports: None, Measles - Past Surgical History Head Surgeries/Procedures: Reports: None HEENT Surgical History: Reports: None Cardiovascular Surgical History: Reports: Coronary Artery Bypass GI Surgical History: Reports: Appendectomy Musculoskeletal Surgical History: Reports: None Social & Family History - Family History Family Medical History: Noncontributory - Caffeine Use Caffeine Use: Reports: Coffee Caffeine Use Comment: 30 oz daily - Living Situation & Occupation Living situation: Reports: Occupation: Retired ED ROS GENERAL - Review of Systems Review Of Systems: Comprehensive ROS is negative, except as noted in HPI. ED EXAM, GENERAL - Physical Exam Exam: See Below Free Text/Narrative:: He is drinking fluids as I enter the room. Appears in no distress. He is requiring 4liters of oxygen to keep his sats at 91%. Exam Limited By: No Limitations General Appearance: Alert, WD/WN, No Apparent Distress Eye Exam: Bilateral Eye: PERRL Ears: Normal External Exam Nose: Normal Inspection Throat/Mouth: Normal Inspection, Normal Lips Head: Atraumatic Neck: Normal Inspection, Supple Respiratory/Chest: No Respiratory Distress, Lungs Clear (Although poor inspiratory amount. So decreased throughout. ), Decreased Breath Sounds (Although the patient doesn't understand how to take a deep breath). No: Respiratory Distress Cardiovascular: Normal Peripheral Pulses, Regular Rate, Rhythm Peripheral Pulses: 2+: Radial (L), Radial (R), Posterior Tibial (L), Posterior Tibial (R), Dorsalis Pedis (L), Dorsalis Pedis (R) GI/Abdominal: Normal Bowel Sounds, Soft, Non-Tender, No Organomegaly (Male) Exam: Deferred Rectal (Males) Exam: Deferred Back Exam: Normal Inspection, Full Range of Motion Extremities: Normal Inspection, Normal Range of Motion, Normal Capillary Refill Neurological: Alert, Oriented, Normal Cognition, No Motor/Sensory Deficits Psychiatric: Normal Affect, Normal Mood Skin Exam: Warm, Dry, Intact, Normal Color EKG INTERPRETATION EKG Date: 02/23/20 Time: 12:25 Rhythm: Other (Ventricularly paced rhythm) Rate (Beats/Min): 78 P-Wave: Present QRS: Wide ST-T: Normal Course - Vital Signs Last Recorded V/S: Last Vital Signs Temp 98.9 F 02/23/20 18:36 Pulse 78 02/23/20 12:00 Resp 23 H 02/23/20 18:36 BP 115/65 02/23/20 18:36 Pulse Ox 93 L 02/23/20 18:36 - Orders/Labs/Meds Orders: Active Orders 24 hr Category Date Time Status CULTURE BLOOD [BC] Stat Lab 02/23/20 13:30 Received CULTURE URINE [RM] Stat Lab 02/23/20 17:33 Received Blood Culture x2 Reflex Set [OM.PC] Stat Oth 02/23/20 13:23 Ordered Peripheral IV Insertion Adult [OM.PC] Stat Oth 02/23/20 12:16 Ordered Labs: Laboratory Tests 02/23/20 02/23/20 02/23/20 Range/Units 12:35 12:35 12:35 WBC 9.8 (5.0-10.0) 10^3/uL RBC 5.32 (4.6-6.2) 10^6/uL Hgb 15.1 D (14.0-18.0) g/dL Hct 45.5 (40.0-54.0) % MCV 85.5 D (80-100) fL MCH 28.4 (27.0-34.0) pg MCHC 33.2 (33.0-35.0) g/dL Plt Count 289 D (150-450) 10^3/uL Neut % (Auto) 87.1 H (42.2-75.2) % Lymph % (Auto) 6.1 L (20.5-50.1) % [place] % (Auto) 6.4 (2-8) % Eos % (Auto) 0.2 L (1.0-3.0) % Baso % (Auto) 0.2 (0.0-1.0) % Add Manual Diff Yes Neutrophils % (Manual) 91 H (42-75) % Band Neutrophils % 4 % Lymphocytes % (Manual) 3 L (20-50) % Monocytes % (Manual) 1 L (2-8) % Metamyelocytes % 1 Sodium 136 (136-145) mmol/L Potassium 3.5 (3.5-5.1) mmol/L Chloride 98 (98-107) mmol/L Carbon Dioxide 29 (21-32) mmol/L Anion Gap 12.5 (7-13) mEq/L BUN 28 H (7-18) mg/dL Creatinine 1.29 (0.70-1.30) mg/dL Est Cr Clr Drug Dosing TNP Estimated GFR (MDRD) 55 BUN/Creatinine Ratio 21.7 (No establ ref range) Glucose 271 H (74-99) mg/dL Lactic Acid 2.5 H* (0.4-2.0) mmol/L Calcium 8.9 (8.5-10.1) mg/dL Total Bilirubin 0.7 (0.2-1.0) mg/dL AST 38 H (15-37) U/L ALT 49 (16-63) U/L Alkaline Phosphatase 91 (46-116) U/L Troponin I 0.086 H* (0.000-0.056) ng/mL C-Reactive Protein 9.8 H (0.0-0.9) mg/dL B-Natriuretic Peptide 304 H (0-100) pg/ml Total Protein 7.9 (6.4-8.2) g/dL Albumin 2.7 L (3.4-5.0) g/dL Globulin 5.2 Albumin/Globulin Ratio 0.52 Urine Color (YELLOW) Urine Appearance (CLEAR) Urine pH (5.0-9.0) Ur Specific [place] (1.005-1.030) Urine Protein (NEGATIVE) Urine Glucose (UA) (NEGATIVE) Urine Ketones (NEGATIVE) Urine Occult Blood (NEGATIVE) Urine Nitrite (NEGATIVE) Urine Bilirubin (NEGATIVE) Urine Urobilinogen (0.2-1.0) mg/dL Ur Leukocyte Esterase (NEGATIVE) Urine RBC /HPF Urine WBC (0-5/HPF) /HPF Ur Epithelial Cells (NOT SEEN) /HPF Urine Bacteria (0-FEW/HPF) /HPF Urine Mucus (NOT SEEN) /LPF 02/23/20 02/23/20 Range/Units 16:48 17:33 WBC (5.0-10.0) 10^3/uL RBC (4.6-6.2) 10^6/uL Hgb (14.0-18.0) g/dL Hct (40.0-54.0) % MCV (80-100) fL MCH (27.0-34.0) pg MCHC (33.0-35.0) g/dL Plt Count (150-450) 10^3/uL Neut % (Auto) (42.2-75.2) % Lymph % (Auto) (20.5-50.1) % [place] % (Auto) (2-8) % Eos % (Auto) (1.0-3.0) % Baso % (Auto) (0.0-1.0) % Add Manual Diff Neutrophils % (Manual) (42-75) % Band Neutrophils % % Lymphocytes % (Manual) (20-50) % Monocytes % (Manual) (2-8) % Metamyelocytes % Sodium (136-145) mmol/L Potassium (3.5-5.1) mmol/L Chloride (98-107) mmol/L Carbon Dioxide (21-32) mmol/L Anion Gap (7-13) mEq/L BUN (7-18) mg/dL Creatinine (0.70-1.30) mg/dL Est Cr Clr Drug Dosing Estimated GFR (MDRD) BUN/Creatinine Ratio (No establ ref range) Glucose (74-99) mg/dL Lactic Acid (0.4-2.0) mmol/L Calcium (8.5-10.1) mg/dL Total Bilirubin (0.2-1.0) mg/dL AST (15-37) U/L ALT (16-63) U/L Alkaline Phosphatase (46-116) U/L Troponin I 0.090 H* (0.000-0.056) ng/mL C-Reactive Protein (0.0-0.9) mg/dL B-Natriuretic Peptide (0-100) pg/ml Total Protein (6.4-8.2) g/dL Albumin (3.4-5.0) g/dL Globulin Albumin/Globulin Ratio Urine Color Dark yellow (YELLOW) Urine Appearance Cloudy (CLEAR) Urine pH 5.5 (5.0-9.0) Ur Specific [place] >= 1.030 (1.005-1.030) Urine Protein 100 H (NEGATIVE) Urine Glucose (UA) 500 H (NEGATIVE) Urine Ketones Negative (NEGATIVE) Urine Occult Blood Small H (NEGATIVE) Urine Nitrite Positive H (NEGATIVE) Urine Bilirubin Negative (NEGATIVE) Urine Urobilinogen 0.2 (0.2-1.0) mg/dL Ur Leukocyte Esterase Small H (NEGATIVE) Urine RBC 10-20 H /HPF Urine WBC >100 H (0-5/HPF) /HPF Ur Epithelial Cells Rare (NOT SEEN) /HPF Urine Bacteria Many H (0-FEW/HPF) /HPF Urine Mucus Few H (NOT SEEN) /LPF Meds: Medications Discontinued Medications Generic Name Dose Route Start Last Admin Trade Name Gilbertoq PRN Reason Stop Dose Admin Aspirin 324 mg 02/23/20 13:25 02/23/20 13:35 Aspirin PO 02/23/20 13:26 324 mg ONETIME ONE Administration Lactated Ringer's 1,000 mls @ 1,000 mls/hr 02/23/20 13:23 02/23/20 13:34 Ringers, Lactated IV 02/23/20 14:22 1,000 mls/hr .BOLUS ONE Administration Sodium Chloride 10 ml 02/23/20 12:16 02/23/20 12:32 Saline Flush FLUSH 10 ml ASDIRECTED PRN Administration Keep Vein Open - Radiology Interpretation Free Text/Narrative:: Chest x-ray per radiology shows cardiac pacemaker sternotomy wires. Extensive abnormal new peripheral pleural parenchymal consolidation both lung gramajo. Atelectasis or postinflammatory fibrosis. No local focal alveolar consolidation. No mass hilar lymphadenopathy. Normal midline trachea airway. No pneumo thorax or pneumomediastinum. - Re-Assessments/Exams Free Text/Narrative Re-Assessment/Exam: 02/23/20 16:29 Patient was given a liter of fluid bolus wide open. His chest x-ray is concerning for atelectasis or postinflammatory fibrosis which is most likely postinflammatory fibrosis or continued COVID parenchymal changes. He does not have an elevated white count. He is not in respiratory distress. He is requiring 4 to 5 L of oxygen to keep his oxygen saturation above 92%. Troponin is mildly elevated at 0.086. He is not actively having any chest pain nor has he had any chest pain over the past couple of days. A full aspirin in the emergency department. I did speak with Dr. Mclain the hospitalist configuration management administrator. He refused due to the troponin. [facility] does not have any COVID beds for this patient. I called and spoke with Dr. Butler at [facility] in [place]. HPI ER Course findings and concerns were relayed to her verally over the phone. She accepted the patient in transfer at this time which will be somewhat delayed as all ambulance are out at this time. WIll place on the floor until able to transport the patient. Will repeat troponin at the 4 hr interval. Departure - Departure Time of Disposition: 16:00 Disposition: DC/Tfer to [facility] 02 Clinical Impression: Hypoxia, Elevated troponin - Discharge Information Referrals: PCP,None [Primary Care Provider] - Forms: ED Department Discharge - My Orders Last 24 Hours: My Active Orders 02/23/20 12:16 Peripheral IV Insertion Adult [OM.PC] Stat 02/23/20 13:23 Blood Culture x2 Reflex Set [OM.PC] Stat 02/23/20 13:30 CULTURE BLOOD [BC] Stat 02/23/20 17:33 CULTURE URINE [RM] Stat - Assessment/Plan Last 24 Hours: My Active Orders 02/23/20 12:16 Peripheral IV Insertion Adult [OM.PC] Stat 02/23/20 13:23 Blood Culture x2 Reflex Set [OM.PC] Stat 02/23/20 13:30 CULTURE BLOOD [BC] Stat 02/23/20 17:33 CULTURE URINE [RM] Stat
[2020-02-23 13:04] LABS: ANION GAP 12.5 mEq/L (7-13); CHLORIDE,CL 98 mmol/L (98-107); SODIUM,NA 136 mmol/L (136-145)
[2020-02-23] MEDS ORDERED: Lactated Ringers 1,000 ML IV ONE (13:23)
[2020-02-23] MEDS ORDERED: Aspirin 81 MG Tab.Chew PO ONE (13:25)
--- NOTE | 2020-02-23 13:40 | CR ---
EXAMINATION: Chest 2V SEX: Male AGE: 74 years CLINICAL HISTORY: 74-year-old male short of breath (hypoxia) who significantly "tested COVID positive, +3 weeks ago". Comparison CXR 28 June 2019 this male with known cardiac disease. Interpretation: 1. Cardiac pacemaker (leads intact and relatively unchanged). Sternotomy wires. 2. *Extensive abnormal new peripheral, pleural parenchymal consolidation both lung gramajo since 28 June that has the appearance of atelectasis or postinflammatory fibrosis. No focal lobar alveolar consolidation. 3. Normal cardiac size and configuration. No central pulmonary vascular congestion, cephalization of flow, alveolar edema or dependent pleural effusion. Coronary artery calcifications. 4. No new lung mass or hilar lymphadenopathy. 5. Normal midline tracheal airway. No pneumothorax or pneumomediastinum. CONCLUSION: Abnormal.
[2020-02-23 17:29] VITALS: PULSE 78
[2020-02-23 18:38] VITALS: BP 115/65
== END 2020-02-23 18:54 ==
LOC: DL.ED 11:55
DX: R09.02 Hypoxemia (principal); R79.89 Other specified abnormal findings of blood chemistry; U07.1 COVID-19; I11.0 Hypertensive heart disease with heart failure; I50.9 Heart failure, unspecified; I25.10 Atherosclerotic heart disease of native coronary artery without angina pectoris; I25.2 Old myocardial infarction; E11.9 Type 2 diabetes mellitus without complications; Z79.899 Other long term (current) drug therapy; Z79.01 Long term (current) use of anticoagulants; Z79.82 Long term (current) use of aspirin; Z88.8 Allergy status to other drugs, medicaments and biological substances
CPT/HCPCS: 36415; 71046; 80053; 81001; 83605; 83880; 84484; 85025; 86140; 87040; 87077; 87086; 87088; 87186; 93005; 96360; 99285-25; A9270-GY; J7120

== ENCOUNTER 2021-04-12 22:19 | Emergency (ER) | payer BC, MEDICARE, OTHER ==
--- NOTE | 2021-04-13 00:17 | CR ---
PROCEDURE INFORMATION: Exam: XR Chest Exam date and time: 04/12/2021 11:43 PM Age: 75 years old Clinical indication: Cough and shortness of breath; Additional info: Cough; Rhonchi; Shortness of breath TECHNIQUE: Imaging protocol: XR of the chest. Views: 2 views. COMPARISON: CR Chest 2V 02/23/2020 1:14 PM FINDINGS: Tubes, catheters and devices: Left approach pacer is unchanged. Lungs: Diffuse chronic appearing pulmonary opacities are seen that are similar to comparison. Pleural spaces: Unremarkable. No pleural effusion. No pneumothorax. Heart/Mediastinum: Unremarkable. No cardiomegaly. Bones/joints: Unremarkable. IMPRESSION: No significant change
[2021-04-13 00:20] LABS: CORONAVIRUS COVID-19 NAA NEGATIVE (NEGATIVE)
--- NOTE | 2021-04-13 00:24 | EDM.PDOC ---
ED HPI GENERAL MEDICAL PROBLEM - General Chief Complaint: Respiratory Problem Stated Complaint: CONGESTION IN CHEST, COVID NEGATIVE YESTERDAY Time Seen by Provider: 04/13/21 00:45 Source of Information: Reports: Patient, Old Records, RN, RN Notes Reviewed History Limitations: Reports: No Limitations - History of Present Illness INITIAL COMMENTS - FREE TEXT/NARRATIVE: Miguel is a 75 y/o male who presents to the ED via personal vehicle with complaints of cough, congestion, and shortness of breath. The patient reports his symptoms began two days ago and have progressively worsened in that time. He states he was tested for COVID yesterday, which was negative; the patient has history of COVID infection in the fall. He states he has taken Robitussin, which provides mild alleviation of his symptoms. He denies fever, shaking chills, sinus pain/pressure, sore throat, chest pain/pressure, palpitations, nausea, vomiting, or abdominal pain. He attest to a smoking hi story with a quit date 30 years ago; he denies alcohol or recreational drug use. The patient has received two doses of a COVID vaccine; he has not received a booster. Generalized Pain Score (Numeric/FACES): 4 - Related Data Allergies Allergy/AdvReac Type Severity Reaction Status Date / Time metformin Allergy Anxiety Verified 04/12/21 23:48 glyburide AdvReac Dizziness Verified 04/12/21 23:48 Home Meds: Home Meds Cod Liver Oil 1 cap PO DAILY 01/03/16 [History] Multivitamin with Minerals [Multivitamins with Minerals] 1 tab PO BID 07/30/18 [History] atorvaSTATin Calcium [Atorvastatin Calcium] 40 mg PO BEDTIME 07/19/20 [History] Aspirin [Aspirin EC] 81 mg PO DAILY 10/19/20 [History] Acetaminophen 2 tab PO [id number] PRN 04/13/21 [History] Past Medical History HEENT History: Reports: Cataract, Hard of Hearing, Impaired Vision Cardiovascular History: Reports: Bypass, CAD, Heart Failure, High Cholesterol, Hypertension, [place], Pacemaker Other Cardiovascular History: Bypass 2017 Respiratory History: Reports: None Gastrointestinal History: Reports: None Genitourinary History: Reports: None Other Genitourinary History: kidney infection Musculoskeletal History: Reports: Other (See Below) Other Musculoskeletal History: shoulder pain Neurological History: Reports: None Psychiatric History: Reports: None Endocrine/Metabolic History: Reports: Diabetes, Type II Other Endocrine/Metabolic History: PT reports weight loss has allowed him to be taken off meds for blood sugar control. Hematologic History: Reports: Anemia, Blood Transfusion(s) Immunologic History: Reports: None Oncologic (Cancer) History: Reports: None Dermatologic History: Reports: None - Infectious Disease History Infectious Disease History: Reports: None, Measles - Past Surgical History Head Surgeries/Procedures: Reports: None HEENT Surgical History: Reports: None Cardiovascular Surgical History: Reports: Coronary Artery Bypass GI Surgical History: Reports: Appendectomy Musculoskeletal Surgical History: Reports: None Social & Family History - Family History Family Medical History: No Pertinent Family History - Tobacco Use Tobacco Use Status *Q: Never Tobacco User - Caffeine Use Caffeine Use: Reports: Coffee Caffeine Use Comment: 30 oz daily - Recreational Drug Use Recreational Drug Use: No - Living Situation & Occupation Living situation: Reports: Occupation: Retired ED ROS GENERAL - Review of Systems Review Of Systems: Comprehensive ROS is negative, except as noted in HPI. ED EXAM, GENERAL - Physical Exam Exam: See Below Exam Limited By: No Limitations General Appearance: Alert, No Apparent Distress Eye Exam: Bilateral Eye: EOMI, Normal Inspection, PERRL (3mm) Ears: Normal External Exam, Normal Canal, Hearing Grossly Normal, Normal TMs Nose: Normal Inspection, Normal Mucosa, No Blood Throat/Mouth: Normal Inspection, Normal Oropharynx, Normal Voice, No Airway Compromise Head: Atraumatic, Normocephalic Neck: Normal Inspection, Supple, Non-Tender. No: Lymphadenopathy (L), Lymphadenopathy (R) Respiratory/Chest: No Respiratory Distress, No Accessory Muscle Use, Chest Non- Tender, Decreased Breath Sounds, Rhonchi (To bilateral gramajo). No: Crackles, Rales, Wheezing, Stridor Cardiovascular: Normal Peripheral Pulses, Regular Rate, Rhythm, No Gallop, No Murmur, No Rub Peripheral Pulses: 2+: Radial (L), Radial (R) GI/Abdominal: Normal Bowel Sounds, Soft, Non-Tender, No Distention, No Abnormal Bruit, No Mass, Pelvis Stable (Male) Exam: Deferred Rectal (Males) Exam: Deferred Back Exam: Normal Inspection, Full Range of Motion Extremities: Normal Inspection, Normal Range of Motion, Non-Tender, No Pedal Edema, Normal Capillary Refill Neurological: Alert, Oriented, CN II-XII Intact, Normal Cognition, Normal Gait, No Motor/Sensory Deficits Psychiatric: Normal Affect, Normal Mood Skin Exam: Warm, Dry, Intact, Normal Color, No Rash. No: Cyanosis, Jaundice, Mottled, Pallor Course - Vital Signs Last Recorded V/S: Last Vital Signs Temp 99.4 F 04/13/21 01:15 Pulse 72 04/13/21 01:15 Resp 20 04/13/21 01:15 BP 132/89 04/13/21 01:15 Pulse Ox 93 L 04/13/21 01:15 - Orders/Labs/Meds Labs: Laboratory Tests 04/12/21 Range/Units 23:30 Influenza Type A RNA Negative (NEGATIVE) Influenza Type B RNA Negative (NEGATIVE) SARS-CoV-2 RNA (WILLEM) Negative (NEGATIVE) Meds: Medications Discontinued Medications Generic Name Dose Route Start Last Admin Trade Name Freq PRN Reason Stop Dose Admin Doxycycline Monohydrate 100 mg 04/13/21 00:58 04/13/21 01:13 Doxycycline Monohydrate 100 Mg Cap PO 04/13/21 00:59 100 mg ONETIME ONE Administration - Radiology Interpretation Free Text/Narrative:: [facility] Final Radiology Report Call: [phone] assistance Online chat: [email or web address] Name: MIGUEL DYKES Age: 75Years M Date: 04/12/2021 SSN: -- : [id number] Study: CR CHEST 2V Requesting Physician: Ana Quiroz Images: 2 Addl Studies: Provided Clinical History: Cough; Rhonchi; Shortness of breath Contrast: Contrast Medium: Contrast Amount: Contrast Method: CONFIDENTIALITY STATEMENT This report is intended only for use by the referring physician, and only in accordance with law. If you received this in error, call [phone]. Page 1 of 1 PROCEDURE INFORMATION: Exam: XR Chest Exam date and time: 04/12/2021 11:43 PM Age: 75 years old Clinical indication: Cough and shortness of breath; Additional info: Cough; Rhonchi; Shortness of breath TECHNIQUE: Imaging protocol: XR of the chest. Views: 2 views. COMPARISON: CR Chest 2V 02/23/2020 1:14 PM FINDINGS: Tubes, catheters and devices: Left approach pacer is unchanged. Lungs: Diffuse chronic appearing pulmonary opacities are seen that are similar to comparison. Pleural spaces: Unremarkable. No pleural effusion. No pneumothorax. Heart/Mediastinum: Unremarkable. No cardiomegaly. Bones/joints: Unremarkable. IMPRESSION: No significant change Thank you for allowing us to participate in the care of your patient. Dictated and Authenticated by: Hadley Adams MD 04/13/2021 12:16 AM Central Time ([place] & [place]) - Re-Assessments/Exams Free Text/Narrative Re-Assessment/Exam: 04/13/21 COVID and Influenza test sent. CXR obtained. Findings of examination, lab work, and imaging reviewed with patient. Will treat empirically with doxycycline for CAP and Tessalon for cough. Supportive cares for cough and respiratory infection discussed. Patient instructed to follow up with primary care provider in 3-5 days regarding todays visit. Red flag signs and symptoms which would warrant immediate reevaluation reviewed. Patient verbalized understanding and agreement with the plan of care. Departure - Departure Time of Disposition: 01:01 Disposition: Home, Self-Care 01 Condition: Fair Clinical Impression: Cough Pneumonia Qualifiers: Pneumonia type: due to unspecified organism Laterality: left Lung location: lower lobe of lung Qualified Code(s): J18.9 - Pneumonia, unspecified organism - Discharge Information *PRESCRIPTION DRUG MONITORING PROGRAM REVIEWED*: Not Applicable *COPY OF PRESCRIPTION DRUG MONITORING REPORT IN PATIENT KAMALA: Not Applicable Instructions: Cough, Adult, [id number], Community-Acquired Pneumonia, Adult [facility]errals: [facility] [Primary Care Provider] - Forms: ED Department Discharge Additional Instructions: Rx: doxycycline Rx: Char Gaona 1.) Take all of your antibiotic until gone, even as symptoms improve. 2.) Try hot steam showers to help loosen congestion. 3.) Sleep with a humidifier on at night. 4.) Follow up with your primary care provider in 3-5 days regarding today's visit, sooner should symptoms persist or worsen. Sepsis Event Note (ED) - Focused Exam Vital Signs: Vital Signs Temp Pulse Resp BP Pulse Ox 04/13/21 01:15 99.4 F 72 20 132/89 93 L 04/12/21 23:40 98.4 F 84 20 147/76 H 95
[2021-04-13] MEDS ORDERED: Doxycycline Monohydrate 100 MG Cap PO ONE (00:58)
[2021-04-13 01:26] VITALS: BP 132/89; PULSE 72
== END 2021-04-13 01:10 | disposition home or self-care (01) ==
LOC: DL.ED 22:19
DX: J18.9 Pneumonia, unspecified organism (principal); I11.0 Hypertensive heart disease with heart failure; I50.9 Heart failure, unspecified; I25.10 Atherosclerotic heart disease of native coronary artery without angina pectoris; I25.2 Old myocardial infarction; E11.9 Type 2 diabetes mellitus without complications; Z95.1 Presence of aortocoronary bypass graft; Z88.8 Allergy status to other drugs, medicaments and biological substances; Z20.822 Contact with and (suspected) exposure to COVID-19
CPT/HCPCS: 0240U; 71046; 99283; A9270

== ENCOUNTER 2022-06-22 19:40 | Emergency (ER) | payer BC, MEDICARE ==
[2022-06-22] MEDS ORDERED: Benzonatate 100 MG Cap PO ONE (19:41)
[2022-06-22 20:16] VITALS: BP 128/72; PULSE 66
[2022-06-22 20:45] LABS: RESPIRATORY SYNCYTIAL VIR NAA NEGATIVE (NEGATIVE)
[2022-06-22 20:46] LABS: CORONAVIRUS COVID-19 NAA POSITIVE (NEGATIVE)
[2022-06-22] MEDS ORDERED: Dexamethasone 4 MG/ML SDV IM ONE (21:07)
[2022-06-22] MEDS ORDERED: Benzonatate 100 MG Cap ONE (21:25)
== END 2022-06-22 21:33 | disposition home or self-care (01) ==
LOC: DL.ED 19:40
DX: U07.1 COVID-19 (principal); J12.82 Pneumonia due to coronavirus disease 2019; I25.10 Atherosclerotic heart disease of native coronary artery without angina pectoris; E78.00 Pure hypercholesterolemia, unspecified; I10 Essential (primary) hypertension; I25.2 Old myocardial infarction; E11.9 Type 2 diabetes mellitus without complications; Z95.0 Presence of cardiac pacemaker; Z95.1 Presence of aortocoronary bypass graft; Z88.8 Allergy status to other drugs, medicaments and biological substances; Z79.82 Long term (current) use of aspirin; Z79.899 Other long term (current) drug therapy
CPT/HCPCS: 0241U; 71046; 96372; 99284; A9270-GY; J1100

== ENCOUNTER 2022-07-01 06:15 | Emergency (ER) | payer BC, MEDICARE ==
[2022-07-01 07:06] VITALS: BP 132/73; PULSE 64
[2022-07-01] MEDS ORDERED: GI Cocktail Oral Solution 30 ML ONE (07:25)
[2022-07-01 09:03] LABS: ANION GAP 9.3 mEq/L (7-13)
== END 2022-07-01 09:30 | disposition left against medical advice (07) ==
LOC: DL.ED 06:15
DX: I21.4 Non-ST elevation (NSTEMI) myocardial infarction (principal); R06.6 Hiccough; I11.0 Hypertensive heart disease with heart failure; I50.9 Heart failure, unspecified; I25.10 Atherosclerotic heart disease of native coronary artery without angina pectoris; I25.2 Old myocardial infarction; E11.9 Type 2 diabetes mellitus without complications; Z79.82 Long term (current) use of aspirin; Z88.8 Allergy status to other drugs, medicaments and biological substances; Z90.49 Acquired absence of other specified parts of digestive tract
CPT/HCPCS: 36415; 71045; 80053; 83690; 84484; 85025; 93005; 99285; A9270

== ENCOUNTER 2022-08-06 18:44 | Emergency (ER) | payer BC, MEDICARE ==
[2022-08-06 19:02] VITALS: BP 80/68; PULSE 76
== END 2022-08-06 20:03 | disposition home or self-care (01) ==
LOC: DL.ED 18:44
DX: S92.531A Displaced fracture of distal phalanx of right lesser toe(s), initial encounter for closed fracture (principal); I11.0 Hypertensive heart disease with heart failure; I50.9 Heart failure, unspecified; E11.9 Type 2 diabetes mellitus without complications; I25.2 Old myocardial infarction; I25.10 Atherosclerotic heart disease of native coronary artery without angina pectoris; E78.00 Pure hypercholesterolemia, unspecified; D64.9 Anemia, unspecified; Z79.899 Other long term (current) drug therapy; Z88.8 Allergy status to other drugs, medicaments and biological substances; W22.8XXA Striking against or struck by other objects, initial encounter
CPT/HCPCS: 73660-T7; 99283

== ENCOUNTER 2022-10-31 23:56 | Emergency (ER) | payer BC, MEDICARE ==
[2022-11-01 00:05] VITALS: BP 127/91; PULSE 74
== END 2022-11-01 01:11 | disposition home or self-care (01) ==
LOC: DL.ED 23:56
DX: J18.9 Pneumonia, unspecified organism (principal); I25.810 Atherosclerosis of coronary artery bypass graft(s) without angina pectoris; I11.0 Hypertensive heart disease with heart failure; I50.9 Heart failure, unspecified; E78.00 Pure hypercholesterolemia, unspecified; I25.2 Old myocardial infarction; E11.9 Type 2 diabetes mellitus without complications; Z88.8 Allergy status to other drugs, medicaments and biological substances; Z79.82 Long term (current) use of aspirin; Z79.899 Other long term (current) drug therapy
CPT/HCPCS: 71046; 99284

== ENCOUNTER 2023-06-03 15:29 | Emergency (ER) | payer MEDICARE, BC ==
[2023-06-03] MEDS ORDERED: Iopamidol 612 MG/ML 100 ML Bottle IVPUSH ONE (16:09)
[2023-06-03] MEDS: Sodium Chloride 0.9% 10 ML Syringe FLUSH PRN ×2 (16:14→18:03)
[2023-06-03 16:19] LABS: BASOPHILS PERCENT AUTO 0.2 % (0.0-1.0); EOSINOPHILS PERCENT AUTO 2.7 % (1.0-3.0); HEMATOCRIT 47.4 % (40.0-54.0); HEMOGLOBIN 14.9 g/dL (14.0-18.0); LYMPHOCYTES PERCENT AUTO 29.9 % (20.5-50.1); MEAN CORPUSCULAR HEMOGLOBIN 28.1 pg (27.0-34.0); MEAN CORPUSCULAR HGB CONC 31.4 g/dL (33.0-35.0); MEAN CORPUSCULAR VOLUME 89.3 fL (80-100); MONOCYTES PERCENT AUTO 12.4 % (2-8); NEUTROPHILS PERCENT AUTO 54.8 % (42.2-75.2); PLATELET COUNT,PLT 115 10^3/uL (150-450); RED BLOOD CELL COUNT 5.31 10^6/uL (4.6-6.2); WHITE BLOOD CELL COUNT,WBC 5.5 10^3/uL (5.0-10.0)
[2023-06-03 16:28] LABS: LACTIC ACID 1.3 mmol/L (0.4-2.0)
[2023-06-03 16:36] LABS: A/G RATIO 0.9; ALANINE AMINOTRANSFERASE,ALT 28 U/L (16-63); ALBUMIN 3.4 g/dL (3.4-5.0); ALKALINE PHOSPHATASE 203 U/L (46-116); ANION GAP 11.9 mEq/L (7-13); ASPARTATE AMNIOTRANSFERASE,AST 41 U/L (15-37); BILIRUBIN TOTAL 1.6 mg/dL (0.2-1.0); BLOOD UREA NITROGEN,BUN 15 mg/dL (7-18); BUN/CREATININE RATIO 12.4 (No establ ref range); CALCIUM 8.7 mg/dL (8.5-10.1); CARBON DIOXIDE,CO2 30 mmol/L (21-32); CHLORIDE,CL 104 mmol/L (98-107); CREATININE 1.21 mg/dL (0.70-1.30); EST CRCL DRUG DOSING (CG) 54.47 mL/min; GLUCOSE RANDOM 108 mg/dL (70-99); LIPASE 25 U/L (16-77); POTASSIUM,K 3.9 mmol/L (3.5-5.1); PROTEIN TOTAL,TP 7.1 g/dL (6.4-8.2); SODIUM,NA 142 mmol/L (136-145)
[2023-06-03 16:38] LABS: C-REACTIVE PROTEIN < 0.50 ng/dL (<=0.50); ESTIMATED GFR 62 mL/min (>=60)
[2023-06-03] MEDS ORDERED: Furosemide 100 MG/10 ML SDV IVPUSH ONE (17:46)
[2023-06-03] MEDS ORDERED: Bisacodyl 5 MG Tab PO ONE (17:50)
[2023-06-03] MEDS ORDERED: Lactulose Soln 10 GM/15 ML 30 ML UD Cup PO ONE (17:50)
[2023-06-03 18:22] LABS: APPEARANCE,URINE CLEAR (CLEAR); BILIRUBIN,URINE NEGATIVE (NEGATIVE); COLOR,URINE YELLOW (YELLOW); GLUCOSE,URINE NEGATIVE (NEGATIVE); KETONES,URINE NEGATIVE (NEGATIVE); LEUKOCYTE ESTERASE,URINE NEGATIVE (NEGATIVE); NITRITE,URINE NEGATIVE (NEGATIVE); OCCULT BLOOD,URINE TRACE-INTACT (NEGATIVE); PROTEIN,URINE 30 (NEGATIVE)
[2023-06-03 18:45] LABS: BACTERIA,URINE RARE /HPF (0-FEW/HPF); EPITHELIAL CELLS,URINE RARE /HPF (NOT SEEN); RBC,URINE 0-5 /HPF (0-5); WBC,URINE 0-5 /HPF (0-5/HPF)
[2023-06-03 19:38] VITALS: BP 136/84; PULSE 74
== END 2023-06-03 19:35 | disposition home or self-care (01) ==
LOC: DL.ED 15:29
DX: K80.20 Calculus of gallbladder without cholecystitis without obstruction (principal); K74.60 Unspecified cirrhosis of liver; K59.09 Other constipation; R18.8 Other ascites; I11.0 Hypertensive heart disease with heart failure; I50.9 Heart failure, unspecified; I25.10 Atherosclerotic heart disease of native coronary artery without angina pectoris; I25.2 Old myocardial infarction; E11.9 Type 2 diabetes mellitus without complications; Z95.1 Presence of aortocoronary bypass graft; Z90.49 Acquired absence of other specified parts of digestive tract; Z79.899 Other long term (current) drug therapy
CPT/HCPCS: 36415; 74177; 80053; 81001; 83605; 83690; 83880; 84145; 85025; 86140; 96374; 99284; A9270; J1940; Q9967; J3490